=== PATIENT | female | born 1955 | race Caucasian/White ===

== ENCOUNTER 2017-05-20 13:00 | Emergency (ER) | payer BC ==
[2017-05-20] MEDS ORDERED: HYDROmorphone 1 MG/ML Syringe ONE (13:48)
[2017-05-20] MEDS ORDERED: HYDROmorphone 1 MG/ML Syringe IVPUSH ONE (13:49)
--- NOTE | 2017-05-20 14:01 | EDM.PDOC ---
ED HPI GENERAL MEDICAL PROBLEM - General Chief Complaint: Back Pain or Injury Time Seen by Provider: 05/20/17 13:41 Source of Information: Reports: Patient History Limitations: Reports: No Limitations - History of Present Illness INITIAL COMMENTS - FREE TEXT/NARRATIVE: Patient presents with severe pain in right mid-back and RUQ that started 6 hours ago at 0730. She has some nausea but no vomiting, diarrhea or constipation. She denies blood in urine and no history of kidney stones. She has gallstones she says. She had a similar pain about ten days ago that lasted about an hour but otherwise has never had this before. She says it feels like "back labor" during her child delivery years ago. This morning she had moy and eggs about 30-60 minutes prior to onset of the pain. She doesn't remember what she ate with prior episode. Bilateral Lower Back Pain Score (Numeric/FACES): 10 - Related Data Allergies Allergy/AdvReac Type Severity Reaction Status Date / Time ciprofloxacin [From Cipro] Allergy Swelling Verified 05/20/17 13:09 house dust mite Allergy Cannot Verified 05/20/17 13:21 Remember mold Allergy Cannot Verified 05/20/17 13:09 Remember Penicillins Allergy Cannot Verified 05/20/17 13:09 Remember procaine [From Novocain] Allergy Cannot Verified 05/20/17 13:21 Remember Sulfa (Sulfonamide Allergy Cannot Verified 05/20/17 13:09 Antibiotics) Remember Home Meds: Home Meds Acetaminophen [Tylenol Extra Strength] 1,000 mg PO DAILY PRN 05/20/17 [History] Folic Acid/Multivit-Min/Lutein [Multi-Vitamin Gummies] 1 tab PO DAILY PRN [History] Gluc 2KCl/Chondr/Chantel Hy/Hy Ac [Glucosamine & Chondroitin Cap] 1 cap PO DAILY PRN 05/20/17 [History] Omeprazole 20 mg PO DAILY 05/20/17 [History] Social & Family History - Tobacco Use Smoking Status *Q: Never Smoker - Caffeine Use Caffeine Use: Reports: Coffee, Soda, Tea - Recreational Drug Use Recreational Drug Use: No ED ROS GENERAL - Review of Systems Review Of Systems: See Below Constitutional: Denies: Fever, Chills HEENT: Denies: Throat Pain, Vision Change Respiratory: Denies: Shortness of Breath, Cough Cardiovascular: Denies: Chest Pain, Lightheadedness, Syncope GI/Abdominal: Reports: Abdominal Pain, Nausea. Denies: Constipation, Diarrhea, Vomiting : Denies: Dysuria, Flank Pain, Hematuria Musculoskeletal: Reports: Back Pain. Denies: Neck Pain, Shoulder Pain, Arm Pain Skin: Denies: Cyanosis, Jaundice, Mottled, Pallor, Diaphoresis Neurological: Denies: Confusion, Dizziness, Headache, Seizure, Syncope Psychiatric: Denies: Agitation, Confusion ED EXAM,LOWER BACK PAIN/INJURY - Physical Exam Exam: See Below Exam Limited By: No Limitations General Appearance: Alert, WD/WN, No Apparent Distress Eye Exam: Bilateral Eye: EOMI, Normal Inspection, PERRL Ears: Normal External Exam, Hearing Grossly Normal Nose: Normal Inspection, No Blood Throat/Mouth: Normal Inspection, Normal Lips, Normal Voice, No Airway Compromise Head: Atraumatic, Normocephalic Neck: Normal Inspection, Full Range of Motion Respiratory/Chest: No Respiratory Distress, Lungs Clear, Normal Breath Sounds, No Accessory Muscle Use Cardiovascular: Regular Rate, Rhythm, No Murmur GI/Abdominal: Normal Bowel Sounds, Soft, No Organomegaly, No Distention, Tender (RUQ) Back Exam: CVA Tenderness (R), Paraspinal Tenderness (somewhat on right that progresses worse laterally to palpation). No: CVA Tenderness (L), Vertebral Tenderness Extremities: Normal Inspection, Normal Range of Motion Neurological: Alert, Normal Mood/Affect, No Motor/Sensory Deficits, Oriented x 3 Psychiatric: Normal Affect, Anxious Skin Exam: Warm, Dry, Intact, Normal Color, No Rash Course - Vital Signs Last Recorded V/S: Last Vital Signs Temp 96.7 F 05/20/17 13:04 Pulse 73 05/20/17 13:04 Resp 20 05/20/17 13:04 BP 150/43 H 05/20/17 13:04 Pulse Ox 95 05/20/17 13:04 - Orders/Labs/Meds Orders: Active Orders 24 hr Category Date Time Status Abdomen Pelvis wo Cont [CT] Stat Exams 05/20/17 13:50 Taken CULTURE URINE [RM] Stat Lab 05/20/17 15:30 Ordered Sodium Chloride 0.9% @ 999 MLS/HR (1000ml) Med 05/20/17 14:59 Ordered Sodium Chloride 0.9% [Normal Saline] 1,000 ml IV .BOLUS Medication Orders Sodium Chloride (Normal Saline) 1,000 mls @ 999 mls/hr IV .BOLUS ONE Stop: 05/20/17 15:59 Last Admin: 05/20/17 15:02 Dose: 999 mls/hr Labs: Laboratory Tests 05/20/17 05/20/17 05/20/17 Range/Units 13:15 13:15 14:25 WBC 11.8 H (5.0-10.0) 10^3/uL RBC 5.13 (3.80-5.50) 10^6/uL Hgb 14.0 (12.0-16.0) g/dL Hct 45.0 (37.0-47.0) % MCV 87.7 (82.0-92.0) fL MCH 27.2 (27.0-31.0) pg MCHC 31.0 L (32.0-36.0) g/dL RDW 13.3 (11.5-14.5) % Plt Count 360 H (150-300) 10^3/uL MPV 8.8 (7.4-10.4) fL Neut % (Auto) 89.0 H (50.0-70.0) % Lymph % (Auto) 7.5 L (20.0-40.0) % [place] % (Auto) 2.3 (2.0-8.0) % Eos % (Auto) 0.2 L (1.0-3.0) % Baso % (Auto) 1.0 (0.0-1.0) % Neut # (Auto) 10.5 H (2.5-7.0) 10^3/uL Lymph # (Auto) 0.9 L (1.0-4.0) 10^3/uL [place] # (Auto) 0.3 (0.1-0.8) 10^3/uL Eos # (Auto) 0.0 L (0.1-0.3) 10^3/uL Baso # (Auto) 0.1 (0.0-0.1) 10^3/uL Sodium 140 (136-145) mmol/L Potassium 3.7 (3.3-5.3) mmol/L Chloride 103 (98-115) mmol/L Carbon Dioxide 24.9 (21.0-32.0) mmol/L BUN 14 (6-25) mg/dL Creatinine 0.64 (0.51-1.17) mg/dL Est Cr Clr Drug Dosing 78.70 mL/min Estimated GFR (MDRD) > 60 mL/min Glucose 139 H (70-110) mg/dL Calcium 9.4 (8.7-10.3) mg/dL Total Bilirubin 0.2 (0.2-1.0) mg/dL AST 25 (15-37) U/L ALT 47 (12-78) U/L Alkaline Phosphatase 103 (46-116) IU/L C-Reactive Protein < 0.2 (0.0-0.9) mg/dL Total Protein 8.0 (6.4-8.2) g/dL Albumin 3.87 (3.00-4.80) g/dL Specimen Type Urincc Urine Color Yellow (YELLOW) Urine Appearance Slightly cloudy H (CLEAR) Urine pH >= 9.0 (5.0-9.0) Ur Specific [place] 1.015 (1.005-1.030) Urine Protein Negative (NEGATIVE) mg/dL Urine Glucose (UA) Negative (NEGATIVE) mg/dL Urine Ketones >=160 H (NEGATIVE) mg/dL Urine Occult Blood Negative (NEGATIVE) Urine Nitrite Negative (NEGATIVE) Urine Bilirubin Negative (NEGATIVE) Urine Urobilinogen 0.2 (0.2-1.0) E.U./dL Ur Leukocyte Esterase Trace H (NEGATIVE) Urine RBC 0-5 /HPF Urine WBC 20-30 H /HPF Ur Epithelial Cells Few /LPF Amorphous Sediment Moderate H (0/HPF) /HPF Urine Bacteria Moderate H (NONE TO FEW) /HPF Meds: Medications Generic Name Dose Route Start Last Admin Trade Name Freq PRN Reason Stop Dose Admin Sodium Chloride 1,000 mls @ 999 mls/hr 05/20/17 14:59 05/20/17 15:02 Normal Saline IV 05/20/17 15:59 999 mls/hr .BOLUS ONE Administration Discontinued Medications Generic Name Dose Route Start Last Admin Trade Name Freq PRN Reason Stop Dose Admin Hydromorphone HCl 1 mg 05/20/17 13:49 05/20/17 13:58 Dilaudid IVPUSH 05/20/17 13:50 1 mg ONETIME ONE Administration Hydromorphone HCl Confirm 05/20/17 13:48 05/20/17 13:59 Dilaudid Administered 05/20/17 13:49 Not Given Dose 1 mg .ROUTE .STK-MED ONE Ondansetron HCl 4 mg 05/20/17 15:21 Zofran IVPUSH 05/20/17 15:22 ONETIME ONE - Re-Assessments/Exams Free Text/Narrative Re-Assessment/Exam: 05/20/17 14:17 Pain is improved with Dilaudid but patient did get lightheaded and nauseated with brief respiratory depression observed. 05/20/17 15:21 CT shows several gall stones with one in the gallbladder neck. No evidence of kidney stones or pyelonephritis. Discussed findings and expectations with patient and her . I advised follow up with her PCP tomorrow for recheck and US. We don't have US availability until Saturday in ER. Will discharge with Hydrocodone and Zofran to use if needed. Patient remained stable throughout ER course. Departure - Departure Time of Disposition: 15:26 Disposition: Home, Self-Care 01 Condition: Good Clinical Impression: Cholelithiasis Qualifiers: Cholelithiasis location: gallbladder and bile duct Cholecystitis acuity: acute - Discharge Information Referrals: Vi Merida, ON SITE SERVICES SPECIALIST [Primary Care Provider] - (F/U with Marleen Solares 05/21/17 at 2 :20) Forms: ED Department Discharge Additional Instructions: 1. Use the prescriptions as directed for pain and nausea control. 2. Try to observe what foods tend to aggravate this the most. 3. Follow up with your PCP tomorrow for recheck and ultrasound. 4. Discuss with your PCP that a urine culture will be done that she should watch for. - My Orders Last 24 Hours: My Active Orders 05/20/17 13:50 Abdomen Pelvis wo Cont [CT] Stat 05/20/17 14:59 Sodium Chloride 0.9% @ 999 MLS/HR (1000ml) Sodium Chloride 0.9% [Normal Saline] 1,000 ml IV .BOLUS 05/20/17 15:30 CULTURE URINE [RM] Stat - Assessment/Plan Last 24 Hours: My Active Orders 05/20/17 13:50 Abdomen Pelvis wo Cont [CT] Stat 05/20/17 14:59 Sodium Chloride 0.9% @ 999 MLS/HR (1000ml) Sodium Chloride 0.9% [Normal Saline] 1,000 ml IV .BOLUS 05/20/17 15:30 CULTURE URINE [] Stat
[2017-05-20 14:13] LABS: CHLORIDE,CL 103 mmol/L (98-115); SODIUM,NA 140 mmol/L (136-145)
[2017-05-20] MEDS ORDERED: Sodium Chloride 0.9% 1,000 ML IV ONE (14:59)
[2017-05-20] MEDS ORDERED: Ondansetron 4 MG/2 ML SDV IVPUSH ONE (15:21)
== END 2017-05-20 16:05 | disposition home or self-care (01) ==
LOC: KA.ED 13:00
DX: K80.70 Calculus of gallbladder and bile duct without cholecystitis without obstruction (principal); Z79.899 Other long term (current) drug therapy; Z88.0 Allergy status to penicillin; Z88.1 Allergy status to other antibiotic agents; Z88.2 Allergy status to sulfonamides; Z88.6 Allergy status to analgesic agent; Z91.048 Other nonmedicinal substance allergy status
CPT/HCPCS: 74176; 80053; 81001; 85025; 86140; 87086; 87088; 96361; 96374; 99284; J1170; J2405; J7030; 87186

== ENCOUNTER 2017-10-09 08:41 | Day surgery (SDC) | payer BC ==
[~2017-10-09 08:41] MED LIST: Bupivacaine 0.5%/EPINEPHrine 1:200,000 30 ML SDV ONE; Lactated Ringers 1,000 ML ONE; Midazolam 1 MG/ML 2 ML SDV ONE; Propofol 200 MG/20 ML SDV ONE; ceFAZolin 1 GM Vial ONE; fentaNYL 250 MCG/5 ML SDV ONE
[2017-10-09] MEDS ORDERED: Sodium Chloride 0.9% 5 ML Syringe FLUSH PRN (09:00)
[2017-10-09] MEDS: Lactated Ringers 1,000 ML IV SCH ×2 (09:09→14:03)
[2017-10-09] MEDS ORDERED: Sodium Chloride 0.9% 100 ML ONE ×2 (09:20)
[2017-10-09] MEDS ORDERED: EPINEPHrine 1:10,000 1 MG/10 ML Syringe ONE ×2 (09:24→10:25)
[2017-10-09] MEDS ORDERED: fentaNYL 250 MCG/5 ML SDV IV ONE (09:40)
[2017-10-09] MEDS ORDERED: Midazolam 1 MG/ML 2 ML SDV IV ONE (09:40)
[2017-10-09] MEDS ORDERED: ceFAZolin 1 GM Vial IV ONE (09:40)
[2017-10-09] MEDS ORDERED: Succinylcholine 200 MG/10 ML MDV IV ONE (09:40)
[2017-10-09] MEDS ORDERED: Propofol 200 MG/20 ML SDV IV ONE (09:40)
[2017-10-09] MEDS ORDERED: Neostigmine Methylsulfate 10 MG/10 ML MDV IV ONE (09:40)
[2017-10-09] MEDS ORDERED: Glycopyrrolate 0.2 MG/ML 5 ML MDV IV ONE (09:40)
[2017-10-09] MEDS ORDERED: Rocuronium 50 MG/5 ML Vial IV ONE (09:40)
[2017-10-09] MEDS ORDERED: Sodium Chloride 0.9% 20 ML SDV ONE (10:10)
[2017-10-09] MEDS ORDERED: ceFAZolin 1 GM Vial ONE (10:10)
[2017-10-09] MEDS ORDERED: Bupivacaine 0.5%/EPINEPHrine 1:200,000 30 ML SDV INFILT ONE ×2 (10:10)
[2017-10-09] MEDS ORDERED: Morphine 4 MG/ML Syringe IVPUSH PRN (10:32)
[2017-10-09] MEDS ORDERED: Ondansetron 4 MG/2 ML SDV IVPUSH PRN (10:32)
[2017-10-09] MEDS ORDERED: Morphine 2 MG/ML Syringe IVPUSH PRN (10:32)
--- NOTE | 2017-10-09 12:37 | PCM.OPNOTE ---
- General Post-Op/Procedure Note Date of Surgery/Procedure: 10/09/17 Operative Procedure(s): Laparoscopic cholecystectomy Findings: Chronically inflamed gallbladder with stones noted. Pre Op Diagnosis: Chronic cholecystitis and cholelithiasis. Post-Op Diagnosis: As above. Anesthesia Technique: General ET Tube Primary Surgeon: Fox Osborn Condition: Good Free Text/Narrative:: INFORMED CONSENT: This patient is here today because of chronic cholecystitis and cholelithiasis. The operative procedure is laparoscopic cholecystectomy. The operative procedure and risks were discussed including all possible complications including infection, pain, bleeding, bile duct injury, internal organ injury, conversion to open procedure, reoperation, PE, . Anesthetic complications were handled by [facility] ADMINISTRATIVE ENGINEER. The patient understands well and wishes to proceed. OPERATION PERFORMED: Laparoscopic cholecystectomy. PROCEDURE: The patient was kept in the supine position and a satisfactory general anesthetic was administered via endotracheal tube. The abdomen was thoroughly prepped and draped in the usual fashion. The supraumbilical fold was infiltrated with 1 mL of Marcaine 0.5% and a curvilinear incision was made. The incision was deepened through the subcutaneous tissue until we came down upon the fascial layer. We then held the fascial layer with two Katina clamps and then introduced a Verre's needle directly into the abdominal cavity. The position of the needle was ascertained by the aspiration of a small quantity of air, free flow of saline, negative aspiration of blood. We then instilled CO2 gas into the abdominal cavity and developed an abdominal pressure of approximately 15 mm/Hg. At this point we removed the Verre's needle and reintroduced it over a sheath. This was followed by a 5/12.5 trocar and a camera. Inspection revealed a chronically inflamed gallbladder with some omental adhesions. The omental pad was quite thick. The rest of the abdominal contents were normal to visualization. Two 5 mm trocars were placed in the right hypochondriac region, one in the right midclavicular and the second on the anterior clavicle line and a third 11.5 trocar was inserted in the subxiphoid position under direct vision. The patient was then kept in the reverse Trendelenburg position with a slight tilt to the left side. The two ratchets were placed one on the fundus and one at the neck of the gallbladder. Dissection was begun at the neck of the gallbladder and the fat in this area was quite immense. We carefully dissected out the cystic artery and cystic duct separately and encircled both structures at approximately 1 to 1-1/2 cm. The critical view [place] was obtained as the gallbladder was removed from the cystic plate by about a third.. We ligated each structure separately using endo clips. When ligating the cystic duct we made sure not to encroach upon the common duct in any way. We then used a hook cautery and gently dissected the gallbladder off its bed. The base gallbladder fossa was gently cauterized for additional hemostasis. The gallbladder was retrieved through the umbilical port via an Endobag. The mady hepatis was thoroughly irrigated with normal saline, most of which was aspirated out. The abdomen was then slowly deflated and prior to removal of the last trocar we completely deflated the abdomen. The trocar sites were washed with Betadine solution and the fascial layer was closed with 0 Polysorb and the skin was closed using 4.0 Polysorb in a subcuticular fashion. We then instilled approximately 20 mL of Marcaine 0.5% with epinephrine between the four sites. Sterile pressure dressings were applied. The patient tolerated the procedure well. There were no operative complications. Sponge, needle, and instrument count were correct.
[2017-10-09] MEDS: fentaNYL 100 MCG/2 ML SDV IVPUSH PRN ×3 (12:55→13:20)
[2017-10-09] MEDS ORDERED: Acetaminophen/HYDROcodone 325-5 MG Tab PO ONE (14:46)
== END 2017-10-09 17:05 | disposition home or self-care (01) ==
LOC: KA.SDS 08:41
PROVIDERS: ATTEND Family Medicine
DX: K80.11 Calculus of gallbladder with chronic cholecystitis with obstruction (principal); K82.8 Other specified diseases of gallbladder; H90.5 Unspecified sensorineural hearing loss; K21.9 Gastro-esophageal reflux disease without esophagitis; Z88.0 Allergy status to penicillin; Z88.2 Allergy status to sulfonamides; Z88.4 Allergy status to anesthetic agent; Z88.1 Allergy status to other antibiotic agents; Z91.048 Other nonmedicinal substance allergy status
CPT/HCPCS: A9270-GY; J0171; J0330; J0690; J2250; J2270; J2370; J2405; J2704; J2710; J3010; J3490; J7050; J7120

== ENCOUNTER 2018-12-19 23:00 | Observation (INO) | payer BC ==
[2018-12-19] MEDS ORDERED: Sodium Chloride 0.9% 10 ML Syringe FLUSH PRN (23:03)
[2018-12-19] MEDS ORDERED: Aspirin 81 MG Tab.Chew PO ONE (23:16)
[2018-12-19] MEDS ORDERED: Nitroglycerin 2% Oint 1 GM UD Packet TOP ONE (23:16)
--- NOTE | 2018-12-19 23:16 | EDM.PDOC ---
ED HPI GENERAL MEDICAL PROBLEM - General Chief Complaint: Cardiovascular Problem Stated Complaint: CHEST PAIN Time Seen by Provider: 12/19/18 23:00 Source of Information: Reports: Patient History Limitations: Reports: No Limitations - History of Present Illness INITIAL COMMENTS - FREE TEXT/NARRATIVE: 63 YO WF presents to ER complaining of some chest discomfort that began tonight after laying down for bed. Pt reports a couple of episodes of chest pain with associated lightheadedness and shortness of breath. Pt states earlier in the day she had some left arm discomfort while playing the piano at home. Pt reports some indigestion the last couple of days. Pt also reports 4 days of intermittent palpitations which she was seen and evaluated in clinic on 2018. Pt states she scheduled for Holter monitoring next week. Pt had an EKG and blood work in clinic which revealed no abnormalities. Pt currently rates her pain as a 3/10 but states she feels better. Onset Date: 12/19/18 Duration: Hour(s): (1) Location: Reports: Chest, Upper Extremity, Left Quality: Reports: Ache Severity: Mild Improves with: Reports: None Worsens with: Reports: None Associated Symptoms: Reports: Chest Pain, Shortness of Breath left arm/chest Pain Score (Numeric/FACES): 3 - Related Data Allergies Allergy/AdvReac Type Severity Reaction Status Date / Time ciprofloxacin [From Cipro] Allergy Swelling Verified 12/19/18 23:42 house dust mite Allergy Itchy Verified 12/19/18 23:42 Eyes, Sinus Fullness mold Allergy Itchy Verified 12/19/18 23:42 Eyes, Sinus fullness Penicillins Allergy Hives Verified 12/19/18 23:42 procaine [From Novocain] Allergy Cannot Verified 12/19/18 23:42 Remember Sulfa (Sulfonamide Allergy Cannot Verified 12/19/18 23:42 Antibiotics) Remember Home Meds: Home Meds Acetaminophen [Tylenol Extra Strength] 1,000 mg PO DAILY PRN 05/20/17 [History] Vit C/E/Zn/Coppr/Lutein/Zeaxan [Preservision Areds 2 Softgel] 1 cap PO DAILY [History] Past Medical History HEENT History: Reports: Impaired Vision Respiratory History: Reports: Intubation, Previous Gastrointestinal History: Reports: Cholelithiasis, GERD Genitourinary History: Reports: Urinary Incontinence Musculoskeletal History: Reports: Back Pain, Chronic Endocrine/Metabolic History: Reports: Osteopenia - Infectious Disease History Infectious Disease History: Reports: Chicken Pox, Mumps, Shingles - Past Surgical History Head Surgeries/Procedures: Reports: None HEENT Surgical History: Reports: Oral Surgery Respiratory Surgical History: Reports: None GI Surgical History: Reports: Appendectomy Female Surgical History: Reports: D&C, Hysterectomy Endocrine Surgical History: Reports: None Musculoskeletal Surgical History: Reports: None Dermatological Surgical History: Reports: None Social & Family History - Family History Family Medical History: Noncontributory - Caffeine Use Caffeine Use: Reports: Coffee, Soda, Tea ED ROS GENERAL - Review of Systems Review Of Systems: See Below Constitutional: Reports: No Symptoms HEENT: Reports: No Symptoms Respiratory: Reports: No Symptoms Cardiovascular: Reports: Chest Pain, Lightheadedness Endocrine: Reports: No Symptoms GI/Abdominal: Reports: No Symptoms : Reports: No Symptoms Musculoskeletal: Reports: Arm Pain Skin: Reports: No Symptoms Neurological: Reports: No Symptoms Psychiatric: Reports: No Symptoms Hematologic/Lymphatic: Reports: No Symptoms Immunologic: Reports: No Symptoms ED EXAM, GENERAL - Physical Exam Exam: See Below Exam Limited By: No Limitations General Appearance: Alert, WD/WN, No Apparent Distress Head: Atraumatic, Normocephalic Neck: Normal Inspection, Supple, Non-Tender, Full Range of Motion Respiratory/Chest: No Respiratory Distress, Lungs Clear, Normal Breath Sounds, No Accessory Muscle Use, Chest Non-Tender Cardiovascular: Normal Peripheral Pulses, Regular Rate, Rhythm, No Edema, No Gallop, No JVD, No Murmur, No Rub GI/Abdominal: Normal Bowel Sounds, Soft, Non-Tender, No Organomegaly, No Distention, No Abnormal Bruit, No Mass Back Exam: Normal Inspection, Full Range of Motion, NT Extremities: Normal Inspection, Normal Range of Motion, Non-Tender, Normal Capillary Refill, No Pedal Edema Neurological: Alert, Oriented, CN II-XII Intact, Normal Cognition, Normal Gait, Normal Reflexes, No Motor/Sensory Deficits Psychiatric: Normal Affect, Normal Mood Skin Exam: Warm, Dry, Intact, Normal Color, No Rash Lymphatic: No Adenopathy EKG INTERPRETATION EKG Date: 12/19/18 Time: 23:04 Rhythm: NSR Rate (Beats/Min): 68 [place]: Normal P-Wave: Present QRS: Normal ST-T: Normal QT: Normal Comparison: NA - No Prior EKG Course - Vital Signs Last Recorded V/S: Last Vital Signs Temp 36.9 C 12/19/18 23:00 Pulse 72 12/19/18 23:46 Resp 14 12/19/18 23:30 BP 100/52 L 12/19/18 23:46 Pulse Ox 96 12/19/18 23:30 - Orders/Labs/Meds Orders: Active Orders 24 hr Category Date Time Status Cardiac Monitoring [RC] . DIRECTED Care 12/19/18 23:03 Active EKG Documentation Completion [RC] ASDIRECTED Care 12/19/18 23:04 Active Peripheral IV Care [RC] . DIRECTED Care 12/19/18 23:04 Active Chest 2V [CR] Stat Exams 12/19/18 23:03 Ordered Sodium Chloride 0.9% [Saline Flush] Med 12/19/18 23:03 Active 10 ml FLUSH Q8HR PRN Peripheral IV Insertion Adult [OM.PC] Routine Oth 12/19/18 23:03 Ordered EKG 12 Lead [EK] Routine Ther 12/19/18 23:03 Ordered Medication Orders Sodium Chloride (Saline Flush) 10 ml FLUSH Q8HR PRN PRN Reason: keep vein open Last Admin: 12/19/18 23:31 Dose: 10 ml Labs: Laboratory Tests 12/19/18 12/19/18 Range/Units 23:25 23:25 WBC 7.42 (5.00-10.00) 10^3/uL RBC 4.72 (3.80-5.50) 10^6/uL Hgb 13.8 (12.0-16.0) g/dL Hct 42.3 (37.0-47.0) % MCV 89.6 (82.0-92.0) fL MCH 29.2 (27.0-31.0) pg MCHC 32.6 (32.0-36.0) g/dL RDW 12.6 (11.5-14.5) % Plt Count 238 (150-400) 10^3/uL MPV 9.5 (7.4-10.4) fL Immature Gran % (Auto) 0.1 (0.0-5.0) % Neut % (Auto) 56.5 (50.0-70.0) % Lymph % (Auto) 30.9 (20.0-40.0) % [place] % (Auto) 9.3 H (2.0-8.0) % Eos % (Auto) 2.7 (1.0-3.0) % Baso % (Auto) 0.5 (0.0-1.0) % Immature Gran # (Auto) 0.01 (0.00-0.50) 10^3/uL Neut # (Auto) 4.19 (2.50-7.00) 10^3/uL Lymph # (Auto) 2.29 (1.00-4.00) 10^3/uL [place] # (Auto) 0.69 (0.10-0.80) 10^3/uL Eos # (Auto) 0.20 (0.10-0.30) 10^3/uL Baso # (Auto) 0.04 (0.00-0.10) 10^3/uL Sodium 144 (136-145) mmol/L Potassium 3.6 (3.3-5.3) mmol/L Chloride 108 (98-115) mmol/L Carbon Dioxide 28.2 (21.0-32.0) mmol/L Anion Gap 11.4 (5-15) mmol/L BUN 10 (6-25) mg/dL Creatinine 0.60 (0.51-1.17) mg/dL Est Cr Clr Drug Dosing 81.80 mL/min Estimated GFR (MDRD) > 60 mL/min Glucose 100 H (75 - 99) mg/dL Calcium 9.1 (8.7-10.3) mg/dL Total Bilirubin 0.3 (0.2-1.0) mg/dL AST 21 (15-37) U/L ALT 47 (12-78) U/L Alkaline Phosphatase 82 (46-116) IU/L Creatine Kinase 91 (26-276) U/L CK-MB (CK-2) 0.90 (0.00-4.30) ng/mL Troponin I < 0.04 (0.00-0.070) ng/mL Total Protein 6.7 (6.4-8.2) g/dL Albumin 3.48 (3.00-4.80) g/dL Meds: Medications Generic Name Dose Route Start Last Admin Trade Name Freq PRN Reason Stop Dose Admin Sodium Chloride 10 ml 12/19/18 23:03 12/19/18 23:31 Saline Flush FLUSH 10 ml Q8HR PRN Administration keep vein open Discontinued Medications Generic Name Dose Route Start Last Admin Trade Name Renan PRN Reason Stop Dose Admin Aspirin 324 mg 12/19/18 23:16 12/19/18 23:21 Aspirin PO 12/19/18 23:17 324 mg ONETIME ONE Administration Nitroglycerin 1 gm 12/19/18 23:16 12/19/18 23:36 Nitro-Bid 2% TOP 12/19/18 23:17 1 gm ONETIME ONE Administration - Radiology Interpretation Free Text/Narrative:: CXR- NAD Departure - Departure Time of Disposition: 00:22 Disposition: Refer to Observation Condition: Fair Clinical Impression: Chest pain Qualifiers: Chest pain type: unspecified Qualified Code(s): R07.9 - Chest pain, unspecified Referrals: Delmi Hernández, CALENDER ROLL OPERATOR [Primary Care Provider] - Forms: ED Department Discharge - My Orders Last 24 Hours: My Active Orders 12/19/18 23:03 Cardiac Monitoring [RC] . DIRECTED Chest 2V [CR] Stat Sodium Chloride 0.9% [Saline Flush] 10 ml FLUSH Q8HR PRN Peripheral IV Insertion Adult [OM.PC] Routine EKG 12 Lead [EK] Routine 12/19/18 23:04 EKG Documentation Completion [RC] ASDIRECTED Peripheral IV Care [RC] . DIRECTED - Assessment/Plan Last 24 Hours: My Active Orders 12/19/18 23:03 Cardiac Monitoring [RC] . DIRECTED Chest 2V [CR] Stat Sodium Chloride 0.9% [Saline Flush] 10 ml FLUSH Q8HR PRN Peripheral IV Insertion Adult [OM.PC] Routine EKG 12 Lead [EK] Routine 12/19/18 23:04 EKG Documentation Completion [RC] ASDIRECTED Peripheral IV Care [RC] . DIRECTED Assessment:: 1. Chest pain 2. left arm pain Plan: 1. admit for obs- Delmi Hernández 2. nitro/ASA 3. telemetry 4. supportive care 5. trop I Q6 x 3
[2018-12-20 00:08] LABS: ANION GAP 11.4 mmol/L (5-15); CHLORIDE,CL 108 mmol/L (98-115); SODIUM,NA 144 mmol/L (136-145)
[2018-12-20] MEDS ORDERED: Sodium Chloride 0.9% 10 ML Syringe FLUSH PRN (00:26)
[2018-12-20] MEDS: Nitroglycerin 2% Oint 1 GM UD Packet TOP SCH ×3 (00:31→11:48)
[2018-12-20] MEDS ORDERED: EPINEPHrine 1:10,000 1 MG/10 ML Syringe IVPUSH PRN (05:12)
[2018-12-20] MEDS ORDERED: Lidocaine 2% 100 MG/5 ML Syringe IVPUSH PRN (05:12)
[2018-12-20] MEDS ORDERED: Nitroglycerin 0.4 MG Tab.SL SL PRN (05:12)
[2018-12-20] MEDS ORDERED: Atropine 0.1 MG/ML 10 ML Syringe IVPUSH PRN (05:12)
[2018-12-20] MEDS ORDERED: Acetaminophen 500 MG Tab PO PRN (08:21)
--- NOTE | 2018-12-20 10:22 | PCM.HP ---
H&P History of Present Illness - General Date of Service: 12/20/18 Admit Problem/Dx: Admission Diagnosis/Problem Admission Diagnosis/Problem Chest pain Source of Information: Patient, Old Records, Provider History Limitations: Reports: No Limitations left arm/chest Pain Score (Numeric/FACES): 3 - Related Data Allergies/Adverse Reactions: Allergies Allergy/AdvReac Type Severity Reaction Status Date / Time ciprofloxacin [From Cipro] Allergy Swelling Verified 12/19/18 23:42 house dust mite Allergy Itchy Verified 12/19/18 23:42 Eyes, Sinus Fullness mold Allergy Itchy Verified 12/19/18 23:42 Eyes, Sinus fullness Penicillins Allergy Hives Verified 12/19/18 23:42 procaine [From Novocain] Allergy Cannot Verified 12/19/18 23:42 Remember Sulfa (Sulfonamide Allergy Cannot Verified 12/19/18 23:42 Antibiotics) Remember Home Medications: Home Meds Acetaminophen [Tylenol Extra Strength] 1,000 mg PO DAILY PRN 05/20/17 [History] Vit C/E/Zn/Coppr/Lutein/Zeaxan [Preservision Areds 2 Softgel] 1 cap PO DAILY [History] Aspirin [Halfprin] 81 mg PO DAILY #30 tab.ec 12/20/18 [Rx] Famotidine [Acid Controller] 20 mg PO ACBREAKFASTANDBED #60 tablet 12/20/18 [Rx] Past Medical History HEENT History: Reports: Impaired Vision Respiratory History: Reports: Intubation, Previous Gastrointestinal History: Reports: Cholelithiasis, GERD Genitourinary History: Reports: Urinary Incontinence 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: Musculoskeletal History: Reports: Back Pain, Chronic Endocrine/Metabolic History: Reports: Osteopenia Hematologic History: Reports: B12 Deficiency, Folic Acid - Infectious Disease History Infectious Disease History: Reports: Chicken Pox, Mumps, Shingles - Past Surgical History Head Surgeries/Procedures: Reports: None HEENT Surgical History: Reports: Oral Surgery Respiratory Surgical History: Reports: None GI Surgical History: Reports: Appendectomy Female Surgical History: Reports: D&C, Hysterectomy Endocrine Surgical History: Reports: None Musculoskeletal Surgical History: Reports: None Dermatological Surgical History: Reports: None Social & Family History - Family History Cardiac: Reports: CAD (maternal uncle and cousin in age 40s) Oncologic: Reports: Breast ( mother, and 2 sisters) - Tobacco Use Smoking Status *Q: Never Smoker Second Hand Smoke Exposure: No - Caffeine Use Caffeine Use: Reports: Coffee, Soda, Tea - Recreational Drug Use Recreational Drug Use: No H&P Review of Systems - Review of Systems: Review Of Systems: See Below General: Reports: Malaise, Fatigue (tires easily). Denies: Fever, Chills, Weakness HEENT: Reports: Headaches (after nitropaste was applied, resolving; does get headaches normally). Denies: Ear Pain, Sore Throat Pulmonary: Denies: Shortness of Breath, Cough Cardiovascular: Reports: Palpitations. Denies: Chest Pain, Dyspnea on Exertion , Edema Gastrointestinal: Reports: Diarrhea. Denies: Abdominal Pain, Constipation, Decreased Appetite, Nausea, Vomiting Genitourinary: Reports: No Symptoms Musculoskeletal: Denies: Neck Pain, Arm Pain Neurological: Reports: Headache. Denies: Dizziness Exam - Exam Exam: See Below - Vital Signs Vital Signs: Last Vital Signs Temp 97.8 F 12/20/18 06:20 Pulse 66 12/20/18 06:20 Resp 18 12/20/18 06:20 BP 100/49 L 12/20/18 06:20 Pulse Ox 96 12/20/18 06:20 Weight: 154 lb 9.6 oz - Exam Quality Assessment: No: Supplemental Oxygen, DVT Prophylaxis General: Alert, Oriented, Cooperative, Other (No distress) HEENT: Conjunctiva Clear, Hearing Intact, Mucosa Moist & [place], Nares Patent, Posterior Pharynx Clear, Pupils Equal, TMs Clear Neck: Supple, Trachea Midline. No: Lymphadenopathy Lungs: Clear to Auscultation, Normal Respiratory Effort Cardiovascular: Regular Rate, Regular Rhythm, Normal S1, Normal S2. No: Systolic Murmur, Diastolic Murmur, Rubs, Gallop/S3, Gallop/S4 GI/Abdominal Exam: Normal Bowel Sounds, Soft, Non-Tender, No Distention Back Exam: Other (no neck pain elicited) Extremities: No Pedal Edema Skin: Warm, Dry, Intact Neurological: Strength Equal Bilateral (to upper extremities) Neuro Extensive - Mental Status: Alert, Oriented x3, Normal Mood/Affect, Normal Cognition, Memory Intact Psychiatric: Alert, Normal Affect, Normal Mood. No: Anxious - Patient Data Lab Results Last 24 hrs: Laboratory Results - last 24 hr 0812/19/18 12/20/18 Range/Units 23:25 23:25 07:32 WBC 7.42 (5.00-10.00) 10^3/uL RBC 4.72 (3.80-5.50) 10^6/uL Hgb 13.8 (12.0-16.0) g/dL Hct 42.3 (37.0-47.0) % MCV 89.6 (82.0-92.0) fL MCH 29.2 (27.0-31.0) pg MCHC 32.6 (32.0-36.0) g/dL RDW 12.6 (11.5-14.5) % Plt Count 238 (150-400) 10^3/uL MPV 9.5 (7.4-10.4) fL Immature Gran % (Auto) 0.1 (0.0-5.0) % Neut % (Auto) 56.5 (50.0-70.0) % Lymph % (Auto) 30.9 (20.0-40.0) % [place] % (Auto) 9.3 H (2.0-8.0) % Eos % (Auto) 2.7 (1.0-3.0) % Baso % (Auto) 0.5 (0.0-1.0) % Immature Gran # (Auto) 0.01 (0.00-0.50) 10^3/uL Neut # (Auto) 4.19 (2.50-7.00) 10^3/uL Lymph # (Auto) 2.29 (1.00-4.00) 10^3/uL [place] # (Auto) 0.69 (0.10-0.80) 10^3/uL Eos # (Auto) 0.20 (0.10-0.30) 10^3/uL Baso # (Auto) 0.04 (0.00-0.10) 10^3/uL Sodium 144 (136-145) mmol/L Potassium 3.6 (3.3-5.3) mmol/L Chloride 108 (98-115) mmol/L Carbon Dioxide 28.2 (21.0-32.0) mmol/L Anion Gap 11.4 (5-15) mmol/L BUN 10 (6-25) mg/dL Creatinine 0.60 (0.51-1.17) mg/dL Est Cr Clr Drug Dosing 81.80 mL/min Estimated GFR (MDRD) > 60 mL/min Glucose 100 H (75 - 99) mg/dL Calcium 9.1 (8.7-10.3) mg/dL Total Bilirubin 0.3 (0.2-1.0) mg/dL AST 21 (15-37) U/L ALT 47 (12-78) U/L Alkaline Phosphatase 82 (46-116) IU/L Creatine Kinase 91 (26-276) U/L CK-MB (CK-2) 0.90 (0.00-4.30) ng/mL Troponin I < 0.04 < 0.04 (0.00-0.070) ng/mL Total Protein 6.7 (6.4-8.2) g/dL Albumin 3.48 (3.00-4.80) g/dL Result Diagrams: 12/19/18 23:25 12/19/18 23:25 EKG INTERPRETATION EKG Date: 12/19/18 Time: 23:04 Rhythm: NSR Rate (Beats/Min): 68 [place]: Normal P-Wave: Present QRS: Normal ST-T: Normal QT: Normal Comparison: Change From Previous EKG (Possible left atrial enlargement, RSR1 or QR pattern in V1 suggests right ventricular conduction delay, poor r wave progression (12/15/18)) EKG Interpretation Comments: Poor r wave progression. Problem List Initiated/Reviewed/Updated: Yes Orders Last 24hrs: Active Orders 24 hr Category Date Time Status Patient Status [ADT] Routine ADT 12/20/18 00:26 Active Cardiac Monitoring [RC] . DIRECTED Care 12/19/18 23:03 Inactive Cardiac Monitoring [RC] 0300,0700,1100,1500,1900,2300 Care 12/20/18 00:26 Active Oxygen Therapy [RC] PRN Care 12/20/18 00:26 Active Up ad Valerie [RC] ASDIRECTED Care 12/20/18 00:26 Active VTE/DVT Education [RC] PER UNIT ROUTINE Care 12/20/18 00:26 Active 2 Gram Sodium Diet [DIET] Diet 12/20/18 Breakfast Active Chest 2V [CR] Stat Exams 12/19/18 23:03 Ordered TROPONIN I [CHEM] Timed Lab 12/20/18 11:00 Ordered Acetaminophen [Tylenol Extra Strength] Med 12/20/18 08:21 Active 1,000 mg PO DAILY PRN Aspirin [Ecotrin] Med 12/21/18 09:00 Active 325 mg PO DAILY Atropine [Atropine 0.1 MG/ML] Med 12/20/18 05:12 Active See Dose Instructions IVPUSH ASDIRECTED PRN EPINEPHrine [EPINEPHrine 1:10,000] Med 12/20/18 05:12 Active 1 mg IVPUSH ASDIRECTED PRN Lidocaine 2% [Xylocaine 2%] Med 12/20/18 05:12 Active See Dose Instructions IVPUSH ASDIRECTED PRN Nitroglycerin [Nitro-Bid 2%] Med 12/20/18 00:30 Active 1 gm TOP Q6H Nitroglycerin [Nitrostat] Med 12/20/18 05:12 Active 0.4 mg SL ASDIRECTED PRN Sodium Chloride 0.9% [Saline Flush] Med 12/20/18 00:26 Active 10 ml FLUSH Q8HR PRN Peripheral IV Insertion Adult [OM.PC] Routine Oth 12/20/18 00:26 Ordered Resuscitation Status Routine Resus Stat 12/20/18 00:26 Ordered EKG 12 Lead [EK] Routine Ther 12/19/18 23:03 Ordered Medication Orders Acetaminophen (Tylenol Extra Strength) 1,000 mg PO DAILY PRN PRN Reason: Pain Aspirin (Ecotrin) 325 mg PO DAILY CYNDY Atropine Sulfate (Atropine 0.1 Mg/Ml) 0 mg IVPUSH ASDIRECTED PRN PRN Reason: Heart. Epinephrine HCl (Epinephrine 1:10,000) 1 mg IVPUSH ASDIRECTED PRN PRN Reason: Heart. Lidocaine HCl (Xylocaine 2%) 0 mg IVPUSH ASDIRECTED PRN PRN Reason: Heart. Nitroglycerin (Nitro-Bid 2%) 1 gm TOP Q6H CYNDY Last Admin: 12/20/18 06:01 Dose: Admin: 12/20/18 00:31 Dose: Not Given Nitroglycerin (Nitrostat) 0.4 mg SL ASDIRECTED PRN PRN Reason: Heart. Sodium Chloride (Saline Flush) 10 ml FLUSH Q8HR PRN PRN Reason: keep vein open Assessment/Plan Comment:: HPI: This is a 63 year old female who presented to the ER last evening with concerns of chest discomfort that occurred while laying down to go to bed that night. Earlier in the day the patient was practicing piano and had some left arm pain (from the neck down to fingertips) that continued while she was at home. No neck pain/numbness. Had some lightheadedness/faintness with these episodes. She reports increased indigestion/heartburn the past few days. Described as burning sensation of esophagus. She has taken Tums for this with resolution of symptoms. Patient has also been having palpitations or "fluttering " off and on the past two weeks. She was evaluated for this in the [facility] on 12/15/18 with EKG and labs. EKG noted NSR at 79 bpm with possible atrial enlargement, RSR' or QR pattern in V1 suggests right ventricular conduction delay, poor r wave progression. CBC, BMP, TSH wnl. Patient is scheduled to have a Zio patch placed in [place] on 01/01/19. Pertinent ED work-up: EKG revealed NSR at 68 bpm CBC, CMP unremarkable Troponin <0.04 CXR-no acute processes Nitropaste x 1 ASA 324 mg x 1 Primary assessment/plan: Rule out UT. Repeat troponin <0.04. Telemetry monitoring. Had relief of symptoms with nitropaste, however did get headache from this. No further nitropaste given. Left arm pain, resolved. Palpitations. Patient notified nursing staff when fluttering was felt and no abnormalities noted on telemetry. Secondary assessment/plan: History of tension-type headaches. History of subjective tinnitus. Sensorineural hearing loss. S/P cholecystectomy. DVT prophylaxis. None. Patient up and moving and hospitalized for < 24 hours. Overall plan: Repeat troponin x 3 to ensure no UT. Continue with telemetry and monitor for any abnormalities. This document serves as the admit H&P and the Discharge Summary. Date of admission: 12/20/18 Date of discharge: 12/20/18 Admitting diagnosis: Primary: Rule out UT, left arm pain, palpitations, indigestion Secondary: History of tension-type HAs, history of subjective tinnitus, history of sensorineural hearing loss, s/p cholecystectomy Final diagnosis: Primary: Rule out UT, this has been ruled out; Left arm pain, resolved; Palpitations, intermittent; GERD Secondary: History of tension-type HAs, history of subjective tinnitus, history of sensorineural hearing loss, s/p cholecystectomy Procedures performed: None Hospital Course: The patient's hospital course was uneventful. No further episodes of chest or arm pain. She did experience palpitations, but no telemetry abnormalities were noted during those times. She remained hemodynamically stable. Troponin x 3 were negative. New medications on discharge: -EC Aspirin 81 mg po daily -Pepcid AC 20 mg po ACBID Changes to home medications: None Regular home medications: -Preservision 1 capsule po daily -Tylenol 1000 mg po daily PRN Condition, Treatment & Final Disposition: The patient is in stable condition at the time of discharge. She will be discharged home with her spouse. She will follow-up at the [facility] on 12/23/18 with Marleen Solares PA-C. Considerations at follow-up would include discussing a stress test versus stress ECHO, and discuss proceeding with Kg jain given no abnormalities noted on telemetry during hospitalization.
[2018-12-21] MEDS ORDERED: Aspirin 325 MG Tab.EC PO SCH (09:00)
== END 2018-12-20 15:18 | disposition home or self-care (01) ==
LOC: KA.ED 23:00 → KA.MS 12-20 00:39
PROVIDERS: ADMIT Nurse Practitioner Family; ATTEND Nurse Practitioner Family
DX: R07.9 Chest pain, unspecified (principal); M79.602 Pain in left arm; R00.2 Palpitations; K21.9 Gastro-esophageal reflux disease without esophagitis; Z86.69 Personal history of other diseases of the nervous system and sense organs; Z90.49 Acquired absence of other specified parts of digestive tract; Z88.1 Allergy status to other antibiotic agents; Z91.048 Other nonmedicinal substance allergy status; Z88.0 Allergy status to penicillin; Z88.2 Allergy status to sulfonamides
CPT/HCPCS: 36415; 71046; 80053; 82550; 82553; 84484; 85025; 93005; 99285; A9270; G0378

== ENCOUNTER 2023-04-17 16:24 | Emergency (ER) | payer MEDICARE, BC ==
[2023-04-17] MEDS ORDERED: Ondansetron 4 MG/2 ML SDV ONE (16:34)
[2023-04-17] MEDS ORDERED: diphenhydrAMINE 25 MG Cap PO ONE (16:34)
[2023-04-17] MEDS ORDERED: Ondansetron 4 MG/2 ML SDV IVPUSH ONE ×2 (16:34→17:47)
[2023-04-17] MEDS ORDERED: Ketorolac 30 MG/ML SDV IVPUSH ONE (16:34)
[2023-04-17] MEDS ORDERED: Sodium Chloride 0.9% 1,000 ML IV ONE (16:34)
[2023-04-17] MEDS ORDERED: Ketorolac 30 MG/ML SDV ONE (16:35)
[2023-04-17] MEDS ORDERED: Sodium Chloride 0.9% 1,000 ML ONE (16:35)
[2023-04-17] MEDS ORDERED: Acetaminophen/HYDROcodone 325-10 MG Tab PO ONE (17:46)
[2023-04-17] MEDS ORDERED: Aspirin 81 MG Tab.EC PO ONE (17:52)
== END 2023-04-17 18:14 | disposition home or self-care (01) ==
LOC: KA.ED 16:24 → MERGE 16:24 → KA.ED 18:14
DX: U07.1 COVID-19 (principal); Z90.710 Acquired absence of both cervix and uterus; Z79.899 Other long term (current) drug therapy; Z88.2 Allergy status to sulfonamides; Z88.0 Allergy status to penicillin; Z88.8 Allergy status to other drugs, medicaments and biological substances; Z88.1 Allergy status to other antibiotic agents; Z91.048 Other nonmedicinal substance allergy status
CPT/HCPCS: 99284; A9270; J1885; J2405; J7030; 96361; 96374; 96375; 96376; 99283-25